=== PATIENT | female | born 1955 | race Caucasian/White ===

== ENCOUNTER 2019-11-11 19:40 | Emergency (ER) | payer OTHER ==
[~2019-11-11] VITALS: Ht 167.6 cm; Wt 61.7 kg
--- NOTE | 2019-11-11 20:04 | NUR ---
RT AT BED SIDE FOR ABG DRAW.
[2019-11-11 20:09] LABS: ABG BASE EXCESS 0.8 mmol/L; ABG PCO2 38.8 mmHg (35.0-45.0); ABG PH 7.427 (7.350-7.450); ABG PO2 63.6 mmHg (75.0-100.0); AaDO2 90.3 mmHg; COHb 0.6 % (0.5-1.5); MetHb 0.4 % (0.0-1.5); O2Hb 90.1 % (94.0-97.0); SITE, ABG Left Radial; VENT MODE, BG Nasal Cannula
--- NOTE | 2019-11-11 20:11 | NUR ---
PT CAME TO ER BIB RA TO BED 8 C/O SOB. PT LIVES IN [facility]. PT STATES THAT SHE HAD HX OF WEST NILE VIRUS. PARALYZED FROM THE WAIST DOWN, WITH MINIMAL USAGE OF UPPER EXTRMITIES. AAOX4. CURRENTLY ON 2L OF N/C O2 SAT 96%. CONNECTED TO [employer].
[2019-11-11 20:26] LABS: CALCIUM, SERUM 9.1 mg/dL (8.5-10.1); CARBON DIOXIDE 28 mmol/L (21-32); CHLORIDE 105 mmol/L (98-107); CREATININE 0.2 mg/dL (0.6-1.3); GLUCOSE 132 mg/dL (74-106); POTASSIUM 4.2 mmol/L (3.5-5.1); SODIUM SERUM 140 mmol/L (136-145); UREA NITROGEN, BLOOD 10 mg/dL (7-18)
[2019-11-11 20:35] LABS: BASOPHILS % (AUTO) 0.5 % (0.0-2.0); EOSINOPHILS % (AUTO) 1.7 % (0.0-6.0); HEMATOCRIT 37 % (33-45); HEMOGLOBIN 12.7 g/dL (11.5-14.8); LYMPHOCYTES # (AUTO) 0.7 /CMM (0.8-4.8); MEAN CORPUSCULAR HGB CONC 34 g/dl (31.0-36.0); MEAN CORPUSCULAR VOLUME 92 fL (82-100); MONOCYTES # (AUTO) 0.3 /CMM (0.1-1.30); MONOCYTES % (AUTO) 5.3 % (2.0-12.0); NEUTROPHILS # (AUTO) 5.4 /CMM (1.8-8.9); NEUTROPHILS % (AUTO) 82.5 % (43.0-81.0); PLATELET COUNT (AUTO) 244 /CMM (150-450); WHITE BLOOD COUNT (AUTO) 6.5 K/uL (4.3-11.0)
[2019-11-11 20:39] LABS: ALANINE AMINOTRANSFERASE 18 U/L (12-78); ALBUMIN 2.6 g/dL (3.4-5.0); ALKALINE PHOSPHATASE 114 U/L (46-116); ASPARTATE AMINOTRANSFERASE 27 U/L (15-37); B-TYPE NATRIURETIC PEPTIDE 179 PG/ML (0-125); BILIRUBIN,DIRECT 0.1 mg/dL (0.0-0.2); BILIRUBIN,TOTAL 0.4 mg/dL (0.2-1.0); TOTAL PROTEIN, SERUM 6.1 g/dL (6.4-8.2)
--- NOTE | 2019-11-11 22:51 | NUR ---
prn eta [id number]
--- NOTE | 2019-11-11 23:21 | NUR ---
REPORT GIVEN TO JANELL HOUSE AT [facility] FOR [facility].
[2019-11-12 00:13] VITALS: BP 117/79
--- NOTE | 2019-11-12 00:13 | NUR ---
REPORT GIVEN TO TRANSPORT STAFF FOR [facility]. AND TRANSFER RESPONSIBILITY.
== END 2019-11-12 00:14 | disposition home or self-care (01) ==
LOC: ER 19:47
DX: R09.02 Hypoxemia (principal); I10 Essential (primary) hypertension; F41.9 Anxiety disorder, unspecified; Z93.1 Gastrostomy status; Z85.72 Personal history of non-Hodgkin lymphomas
CPT/HCPCS: 36415; 36600; 71045-TC; 80048-TC; 80076-TC; 82803-TC; 83880; 84484-TC; 85025-TC